=== PATIENT | female | born 1980 | race Two or more races ===

== ENCOUNTER 2017-08-19 07:06 | Inpatient (IN) | payer OTHER ==
[~2017-08-19] VITALS: Ht 162.6 cm; Wt 68.0 kg
[2017-08-19] MEDS ORDERED: PRENATAL 19 TA1 EAC1 PO (08:06)
[2017-08-19] MEDS ORDERED: FOLIC ACID1 MG PO (08:07)
== END 2017-08-21 13:38 | disposition home or self-care (01) | DRG 775 ==
LOC: LDR 07:06 → OB/GYN 18:20
PROC: 0HQ9XZZ Repair Perineum Skin, External Approach (ICD-10-PCS; principal; 2017-08-19)
PROC: 10D07Z6 Extraction of Products of Conception, Vacuum, Via Natural or Artificial Opening (ICD-10-PCS; 2017-08-19)
PROC: 4A1HXCZ Monitoring of Products of Conception, Cardiac Rate, External Approach (ICD-10-PCS; 2017-08-19)
PROC: 4A033R1 Measurement of Arterial Saturation, Peripheral, Percutaneous Approach (ICD-10-PCS; 2017-08-20)
DX: O70.0 First degree perineal laceration during delivery (principal); Z3A.39 39 weeks gestation of pregnancy; Z37.0 Single live birth

== ENCOUNTER 2020-02-15 07:09 | Inpatient (IN) | payer OTHER ==
[~2020-02-15] VITALS: Ht 162.6 cm; Wt 66.2 kg
[~2020-02-15 07:09] MED LIST: FOLIC ACID1 MG PO; PRENATAL 19 TA1 EAC1 PO
== END 2020-02-17 17:10 | DRG 807 ==
LOC: LDR 07:09 → OB/GYN 02-16 10:43
PROVIDERS: ADMIT Obstetrics & Gynecology; ATTEND Obstetrics & Gynecology
PROC: 10E0XZZ Delivery of Products of Conception, External Approach (ICD-10-PCS; principal; 2020-02-15)
PROC: 0HQ9XZZ Repair Perineum Skin, External Approach (ICD-10-PCS; 2020-02-15)
PROC: 4A0HXFZ Measurement of Products of Conception, Cardiac Rhythm, External Approach (ICD-10-PCS; 2020-02-15)
DX: O70.0 First degree perineal laceration during delivery (principal); Z37.0 Single live birth; Z3A.39 39 weeks gestation of pregnancy